=== PATIENT | male | born 1950 | race Caucasian/White ===

== ENCOUNTER 2018-09-27 15:42 | Inpatient (IN) | payer MEDICARE ==
[~2018-09-27] VITALS: Ht 172.7 cm; Wt 81.7 kg
[2018-09-27 16:25] LABS: BASOPHILS ABSOLUTE AUTO 0.03 K/mm3 (0.00-0.23); BASOPHILS PERCENT AUTO 1 % (0-2); EOSINOPHILS ABSOLUTE AUTO 0.32 K/mm3 (0.00-0.68); EOSINOPHILS PERCENT AUTO 5 % (0-6); Hematocrit 41.5 % (37.0-53.0); IMMATURE GRAN ABSOLUTE AUTO 0.05 K/mm3 (0.00-0.10); IMMATURE GRAN PERCENT AUTO 1 % (0-1); LYMPHOCYTES ABSOLUTE AUTO 0.76 K/mm3 (0.84-5.20); LYMPHOCYTES PERCENT AUTO 12 % (21-46); MONOCYTES ABSOLUTE AUTO 0.11 K/mm3 (0.16-1.47); MONOCYTES PERCENT AUTO 2 % (4-13); Mean Corpuscular HGB 35.2 pg (26.0-34.0); Mean Corpuscular HGB Conc 33.7 g/dL (31.5-36.5); Mean Corpuscular Volume 104 fL (80-100); Mean Platelet Volume 10.4 fL (9.1-12.4); NEUTROPHILS ABSOLUTE AUTO 5.06 K/mm3 (1.96-9.15); NEUTROPHILS PERCENT AUTO 80 % (41-73); Platelet Count 192 K/mm3 (150-400); RDW Coefficient Variation 13.9 % (11.7-14.2); RDW Standard Deviation 53.4 fL (35.1-46.3); Red Blood Cell Count 3.98 M/mm3 (4.30-5.90); White Blood Cell Count 6.33 K/mm3 (4.00-11.30)
[2018-09-27] MEDS ORDERED: LANOXIN125 MCG PO (16:26)
[2018-09-27] MEDS ORDERED: Vitamin B-121000 MCG PO (16:26)
[2018-09-27] MEDS ORDERED: ASPI325EC PO (16:26)
[2018-09-27] MEDS ORDERED: DONE10 PO (16:27)
[2018-09-27] MEDS ORDERED: DOCU100 PO (16:27)
[2018-09-27] MEDS ORDERED: DIVA500EC PO (16:27)
[2018-09-27] MEDS ORDERED: LEVSOD75 PO (16:28)
[2018-09-27] MEDS ORDERED: METO25ER PO (16:28)
[2018-09-27 16:36] LABS: Albumin, Blood 2.8 g/dL (3.4-5.0); Albumin/Globulin Ratio 0.8 (0.8-1.8); Bilirubin, Total 0.6 mg/dL (0.1-1.0); Bun/Creatinine Ratio 14.3 (12.0-20.0); Creatinine, Blood 1.54 mg/dL (0.60-1.20); Globulin, Blood 3.3 g/dL (2.2-4.0); Potassium, Blood 4.4 mmol/L (3.5-5.5); Total Protein, Blood 6.1 g/dL (6.4-8.2)
[2018-09-27 17:00] LABS: Source, Urine Clean Catch
[2018-09-27 17:04] LABS: Bilirubin, Urine Neg (Neg); Blood, Urine 3+ (Neg); Glucose Qualitative, Urine Neg (Neg); Ketones, Urine Neg (Neg); Leukocyte Esterase, Urine 3+ (Neg); Nitrite, Urine Neg (Neg); Protein, Urine 3+ (Neg); Specific Gravity, Urine 1.015 (1.003-1.022); Urobilinogen, Urine 1+ (Normal)
[2018-09-27 17:12] LABS: Appearance, Urine Cloudy (Clear); Color, Urine Yellow (P-Yellow)
[2018-09-27 17:20] LABS: White Blood Cells, Urine TNTC /hpf (0-5)
[2018-09-27 17:22] LABS: Bacteria Mod /hpf; Squamous Epithelial Cells Not Seen /hpf (Few)
[2018-09-27] MEDS ORDERED: Colace100 MG PO (23:06)
[2018-09-28 05:10] LABS: BASOPHILS ABSOLUTE AUTO 0.03 K/mm3 (0.00-0.23); BASOPHILS PERCENT AUTO 0 % (0-2); EOSINOPHILS ABSOLUTE AUTO 0.07 K/mm3 (0.00-0.68); EOSINOPHILS PERCENT AUTO 1 % (0-6); Hematocrit 39.5 % (37.0-53.0); Hemoglobin 13.2 g/dL (13.5-17.5); IMMATURE GRAN ABSOLUTE AUTO 0.05 K/mm3 (0.00-0.10); IMMATURE GRAN PERCENT AUTO 1 % (0-1); LYMPHOCYTES ABSOLUTE AUTO 0.84 K/mm3 (0.84-5.20); LYMPHOCYTES PERCENT AUTO 9 % (21-46); MONOCYTES ABSOLUTE AUTO 1.17 K/mm3 (0.16-1.47); MONOCYTES PERCENT AUTO 13 % (4-13); Mean Corpuscular HGB 34.6 pg (26.0-34.0); Mean Corpuscular HGB Conc 33.4 g/dL (31.5-36.5); Mean Corpuscular Volume 103 fL (80-100); Mean Platelet Volume 10.1 fL (9.1-12.4); NEUTROPHILS PERCENT AUTO 76 % (41-73); Platelet Count 169 K/mm3 (150-400); RDW Coefficient Variation 13.9 % (11.7-14.2); RDW Standard Deviation 53.1 fL (35.1-46.3); Red Blood Cell Count 3.82 M/mm3 (4.30-5.90); White Blood Cell Count 8.96 K/mm3 (4.00-11.30)
--- NOTE | 2018-09-28 05:45 | NUR ---
SHIFT SUMMARY: PATIENT ARRIVED TO THE FLOOR VIA GURNEY, TRANSFERED USING A TRANSFER SHEET TO THE BED. HE IS VERBAL WITH VERY MINIMAL WORDS. SLOW TO RESPOND WITH A FLAT EFFECT. STATES 2-4 WORD SENTENCE ONLY. BUT WILL MOSLTY STARE AND FOLLOW WITH EYES WITH NO RESPONSE. HISTORY TAKEN BY CHART ONLY. HE IS ALERT AND RESPONSIVE TO HIS NAME, BUT TO EVERY THING ELSE NO. HE DOES FOLLOW SMALL INSTRUCTIONS ONLY. CATHETER WAS PLACED IN ER. SPOKE TO MD WHO STATES TO LEAVE CATH IN. SEE ASSESSMENT FOR MORE DETAILS. HE REMAINED STABLE ALL NIGHT, MEDS GIVEN PER EMAR. NO PAIN WAS NOTED. IV CONTINUES TO INFUSE WITH NO PROBLEMS. HE SLEPT WELL THROUGHOUT THE NIGHT. WILL REPORT TO DAY SHIFT RN.
[2018-09-28 05:49] LABS: Bun/Creatinine Ratio 13.2 (12.0-20.0); Calcium, Blood 8.6 mg/dL (8.5-10.1); Creatinine, Blood 1.52 mg/dL (0.60-1.20); Potassium, Blood 4.5 mmol/L (3.5-5.5)
--- NOTE | 2018-09-28 08:02 | NUR ---
AM ASSESSMENT- PT LYING IN BED WITH EYES CLOSED, PT OPENS EYES BRIEFLY WHEN SPOKEN TO. PT NONVERBAL. PT SHAKES HEAD YES/NO WHEN ASKED QUESTIONS. PT ABLE TO MOVE ALL EXTREMETIES INDEP, VERY WEAK. NO APPARENT DISCOMFORT AT THIS TIME. WILL CONT TO MONITOR.
--- NOTE | 2018-09-28 09:18 | NUR ---
PATIENT DID NOT EAT BREAKFAST THIS SHIFT DUE TO BEING NPO AT TIS TIME.
--- NOTE | 2018-09-28 13:37 | NUR ---
DR ROSAS IN TO SEE PT, PER DR ROSAS D/Christina BUCHANAN. PT AND ST ORDERED. PER DR ROSAS HOME MEDICATIONS CAN BE HELD OFF AT THIS TIME.
--- NOTE | 2018-09-28 14:25 | NUR ---
PATIENT DID NOT EAT LUNCH THIS SHIFT DUE TO BEING NPO A THIS THIS TIME.
--- NOTE | 2018-09-28 17:10 | NUR ---
SHIFT SUMMARY- PT DROWSY T/O THE DAY, PT OPENS EYES TO VERBAL COMMAND, WILL NOD HEAD YES/NO WHEN ASKED QUESTIONS AND WILL OCCATIONALLY SAY YES OR NO. PT DENIES ANY COMPLAINTS. LS CLEAR, ON RA. HRR. NO EDEMA PRESENT. BUCHANAN DC'D, PT INCONT OF URINE. LOW GRADE TEMP AT TIMES. PT MOVES EXTREMETIES AND FOLLOWS COMMAND BUT VERY WEAK. PT AWAITING PT AND ST EVAL. NO OTHER ACUTE CHANGES THIS SHIFT.
--- NOTE | 2018-09-29 05:23 | NUR ---
SHIFT SUMMARY: YELENA HAD UNEVENTFUL NIGHT WITH NO ACUTE CHANGES OR CONCERNS. IV CONTINUED TO INFUSE WITH NO DIFFICULTIES. PATIENT REMAINED NON-VERBAL AND WOULD ONLY MAKE MOANING SOUNDS AND FACES WHEN BEING TURNED BY STAFF, OR REPOSITIONED BUT NOT IN A PAINFUL WAY. HE HAD A BUILD UP OF EYE CRUSTY'S THEREFORE WASHED HIS EYES, HE WOULD ONLY OPEN THEM FOR A SECOND. OTHER THEN REPOSITIONING AND ATTENDS CHANGES HE REMAINED UNCHANGED IN CONDITION. WILL REPORT TO DAY SHIFT RN.
--- NOTE | 2018-09-29 09:07 | NUR ---
PATIENT DID NOT EAT BREAKFAST THIS SHIFT DUE TO BEING NPO AT THIS TIME.
--- NOTE | 2018-09-29 13:17 | NUR ---
Stopped by room to meet with family at 1230 pm. Pt sound asleep and family out of the room. t/c to pt's and arranged to meet with her at pt's room between 1:30-2 pm today. Also, let her know vocational childcare teacher, Karin, may be in touch regarding requesting increasing cg hours in the home after d/c.
--- NOTE | 2018-09-29 14:30 | NUR ---
INITIAL PAL CARE ASSESSMENT AND VISIT WITH FAMILY. Pal care referral received from and this am. Met in pt's room with and pia. RN also consulted and PT was just finishing a tx session. Pt was able to sit at side of bed with max assist but did not ambulate at this time. Pt lying in bed with eyes closed. When I put my hand on his shoulder and introduced myself he opened his eyes and smiled but quickly drifted back to appearing asleep. Pt does not report and does not exhibit any nonverbal indicators of pain, anxiety, agitation or distress during my 30 min visit. Pt has PMH of recent, frequent UTI's, rapid onset and progression of dementia of undetermined etiology (still undergoing w/u at [facility]), hypothyroidism, bipolar disorder, a-fib, TIA. Time spent listening to family concers, reviewing , and RN updates today. T/c to Dr to discuss family's questions re: IV nutritional support short term and a good time to meet with when rounding. Information from relayed back to family. Further discussed goals of care, options for home care, HH vs Hospice, director day care center hours available from [facility], [employer] contact. states they have been approved for 17 hours and the max [facility] the [facility] is 21 hours[facility]week. She has a small amount of funds from the sale of their home recently to supplement those CG hours as needed. and Pia will contact [employer] in the next week, even though at this time they are over resources. They will plan to be in pt's room between -w to meet with Dr Jiménez during his rounds. Family is clear that pt's quality of life is their top priority and do not want roofer metal feeding or life support employed if pt is end stage. They have questions about his a fib and nutritional status. We talked about the priority of determining if pt will return to his baseline prior to most recent UTI and being able to take in PO fluids/food before other issues should be addressed. to cancel cardiology appointment in [place] for Thursday, set up months ago to address his a-fib. Family grappling with the speed of decline and is not quite ready to consider comfort care or hospice at this time. If pt does not improve over the next 24-48 hours, I believe they would be receptive to re-evaluating his plan of care and considering EOL care. Pal Care will cont to follow and remain available. given our card, contact information and a booklet, "Hard choices for [place] People". and pia expressed appreciaiton for the conversation and time spent talking with them.
--- NOTE | 2018-09-29 14:45 | NUR ---
PATIENT DID NOT EAT LUNCH THIS SHIFT DUE TO BEING NPO AT THIS TIME.
--- NOTE | 2018-09-29 15:51 | NUR ---
SHIFT SUMMARY NO ACUTE CHANGES. PATIENT DENIES PAIN, NAUSEA, AND SHORTNESS OF BREATH. PATIENT WILL RESPOND WITH ONE WORD ANSWERS SOMETIMES BUT REMAINS MOSTLY NONVERBAL AND SLEEPY. PT EVAL TODAY. PATIENT ABLE TO BRIEFLY SIT ON EDGE OF BED WITH ASSISTANCE BUT COULD NOT STAND. SPEECH/SWALLOW EVAL UNABLE TO BE COMPLETED DUE TO PATIENT'S LETHARGY. PALLAITIVE CARE CONSULT WITH FAMILY TODAY. FAMILY WOULD LIKE TO WAIT TO SEE IF ANY MORE IMPROVEMENT OCCURS BEFORE PERSUING HOSPICE. CALL LIGHT IN REACH, WILL CONTINUE TO MONITOR.
--- NOTE | 2018-09-29 18:05 | NUR ---
PATIENT DID NOT EAT DINNER THIS SHIFT DUE TO BEING NPO AT THIS TIME.
--- NOTE | 2018-09-29 19:45 | NUR ---
ASSUMED CARE OF THE PATIENT. HE IS ALERT AND SPEAKING FULL SENTANCE TO SOME WORDS. HE WAS PLEASENT AND COOPERATIVE COMPERHENDING WHAT I WAS SAYING AND RESPONDING. LUNGS WERE CLEAR THROUGHOUT, RESP EVEN AND UNLABORED. hr REGULAR RHYTHEM. BTX4. ATTENDS CHANGED REDNESS TO GROIN AND BOTTOM AREA. BARRIER CREAM WAS APPLIED. WILL CONTINUE TO MONITOR.
--- NOTE | 2018-09-30 05:20 | NUR ---
SHIFT SUMMARY: YELENA WAS MORE INTERACTIVE WITH STAFF AT BEGINNING OF THE SHIFT. HE HAD NO ACUTE CHANGES OTHER THEN THIS. HE SLEPT WELL BETWEEN THE EVERY TWO HOURS POSITION CHANGE AND ATTENDS CHANGE. MEDS GIVEN PER EMAR. IV CONTINUED TO INFUSE WITH NO PROBLEMS. WILL REPORT TO DAY SHIFT RN.
[2018-09-30 11:40] LABS: BASOPHILS ABSOLUTE AUTO 0.06 K/mm3 (0.00-0.23); BASOPHILS PERCENT AUTO 1 % (0-2); EOSINOPHILS ABSOLUTE AUTO 0.18 K/mm3 (0.00-0.68); EOSINOPHILS PERCENT AUTO 3 % (0-6); Hematocrit 36.9 % (37.0-53.0); Hemoglobin 12.8 g/dL (13.5-17.5); IMMATURE GRAN ABSOLUTE AUTO 0.02 K/mm3 (0.00-0.10); IMMATURE GRAN PERCENT AUTO 0 % (0-1); LYMPHOCYTES ABSOLUTE AUTO 1.58 K/mm3 (0.84-5.20); LYMPHOCYTES PERCENT AUTO 25 % (21-46); MONOCYTES ABSOLUTE AUTO 1.34 K/mm3 (0.16-1.47); MONOCYTES PERCENT AUTO 21 % (4-13); Mean Corpuscular HGB 35.6 pg (26.0-34.0); Mean Corpuscular HGB Conc 34.7 g/dL (31.5-36.5); Mean Corpuscular Volume 103 fL (80-100); Mean Platelet Volume 10.5 fL (9.1-12.4); NEUTROPHILS ABSOLUTE AUTO 3.28 K/mm3 (1.96-9.15); NEUTROPHILS PERCENT AUTO 51 % (41-73); Platelet Count 174 K/mm3 (150-400); RDW Coefficient Variation 13.2 % (11.7-14.2); RDW Standard Deviation 49.7 fL (35.1-46.3); White Blood Cell Count 6.46 K/mm3 (4.00-11.30)
[2018-09-30 12:06] LABS: Anion Gap 6 mmol/L (6-16); Blood Urea Nitrogen 18 mg/dL (8-24); Bun/Creatinine Ratio 14.5 (12.0-20.0); CO2, Blood 27 mmol/L (21-32); Calcium, Blood 8.7 mg/dL (8.5-10.1); Chloride, Blood 109 mmol/L (98-108); Creatinine, Blood 1.24 mg/dL (0.60-1.20); Glomerular Filtration Rate >60 (60-); Glucose, Blood 89 mg/dL (70-99); Potassium, Blood 3.9 mmol/L (3.5-5.5); Sodium, Blood 142 mmol/L (136-145)
--- NOTE | 2018-09-30 16:06 | NUR ---
shift summary PATIENT HAS WORKED WITH SPEECH. DIET ADVANCED. INCONTINENT, CHANGED PRN. NO ACUTE ISSUES NOTED.
--- NOTE | 2018-10-01 04:57 | NUR ---
SHIFT SUMMARY PT HAS BEEN CHANGED AND REPOSITIONED EVERY 2 HOURS PER FIRE SUPPORT SPECIALIST. SLEPT FAIR. NO ACUTE EVENTS NOTED DURING THE NIGHT. IVF'S INFUSING PER PUMP WITHOUT DIFFICULTY. WILL CONTINUE TO MONITOR.
--- NOTE | 2018-10-01 14:12 | NUR ---
SHIFT SUMMARY PT SLEEPING, RESTING QUIETLY DURING SHIFT REPORT. WOKE EASILY FOR CARE. RESPONDS VERY SLOWLY D/T PROGRESSIVE DEMENTIA. ADMITTED FOR METABOLIC ENCEPHALOPATHY R/T UTI. PER PT'S AND REPORT, PT IS BACK TO BASELINE. PT'S HERE THIS AM AND ASSISTED PT WITH BREAKFAST. DR ROSAS IN TO SEE PT EARLIER AND REPORTED PT TO GO HOME TODAY AFTER A SP EVAL AND DIETARY UPDATE. SP EVAL RECHECK DONE AND DIETARY RECOMMENDATIONS COMPLETED FOR TO TAKE HOME. PT HAS VERY LIMITED MOBILITY IN ALL EXTREMITIES. IS ABLE TO EAT FINGER FOODS OK WITH SOME ASSISTANCE. IS NOT ABLE TO USE UTENSILS AT ALL. PT IS INCONTINENT OF BOWEL AND BLADDER. SKIN IS C/D/I. SCD'S IN PLACE, PT TOLERATES WELL. IVF'S INFUSED TO VÍCTOR PER EMAR. PT NOW SL TO BE D/C'D HOME. IN RM TO TAKE PT HOME. NO C/O. CALL LT IN REACH FOR NEEDS.
== END 2018-10-01 15:26 | disposition home or self-care (01) | DRG 689 ==
LOC: ER 15:42 → ERHOLD 18:40 → EDBEDREQ 19:21 → MEDS 21:35 → ENPENDDIS 10-01 10:51 → MEDS 10-01 15:26
PROVIDERS: Emergency Medicine; Hospitalist; ADMIT Hospitalist
DX: N39.0 Urinary tract infection, site not specified (principal); G92 Toxic encephalopathy; B96.20 Unspecified Escherichia coli [E. coli] as the cause of diseases classified elsewhere; F03.90 Unspecified dementia, unspecified severity, without behavioral disturbance, psychotic disturbance, mood disturbance, and anxiety; I10 Essential (primary) hypertension; I48.0 Paroxysmal atrial fibrillation; N40.0 Benign prostatic hyperplasia without lower urinary tract symptoms; E03.9 Hypothyroidism, unspecified; F31.9 Bipolar disorder, unspecified; Z66 Do not resuscitate; Z88.8 Allergy status to other drugs, medicaments and biological substances; Z79.82 Long term (current) use of aspirin; Z79.899 Other long term (current) drug therapy; Z86.73 Personal history of transient ischemic attack (TIA), and cerebral infarction without residual deficits; Z87.440 Personal history of urinary (tract) infections
CPT/HCPCS: 36415; 51702; 70450; 80048; 80053; 81001; 83605; 84439; 84443; 85025; 87077; 87086; 87186; 92526; 92610; 93005; 93010; 96361-59; 96365-59; 96375-59; 97110; 97163; 97530; 99285-25; J0692; J0696; J7030